=== PATIENT | female | born 1940 | race Caucasian/White ===

== ENCOUNTER 2017-08-07 06:04 | Inpatient (IN) | payer OTHER ==
--- NOTE | 2017-06-25 14:39 | PAT Medication Instructions ---
Service Date Jun 25, 2017. Current Home Medication List Carvedilol (Coreg Cr), 40 MG PO QAM Irbesartan-Hydrochlorothiazide (Avalide), 1 TAB PO QPM Multivitamins/Minerals (Mvi With Minerals), 1 TAB PO QAM Naproxen (Aleve), 220 MG PO QAM Medication Instructions For Your Scheduled Surgery -Check with your surgeon for intstructions: Naproxen (Aleve), 220 MG PO QAM - Hold the following medications 24 hours prior to surgery: Irbesartan-Hydrochlorothiazide (Avalide), 1 TAB PO QPM - Hold the following medications the morning of surgery: Multivitamins/Minerals (Mvi With Minerals), 1 TAB PO QAM - Take the following medications the morning of surgery with a sip of water: Carvedilol (Coreg Cr), 40 MG PO QAM If you have any questions please call us at [phone] or [phone] or [phone]
--- NOTE | 2017-06-25 15:36 | DIAGNOSTIC IMAGING REPORT ---
CHEST PREADMISSION(PA/LAT) CLINICAL HISTORY: Preoperative chest COMPARISON STUDY: 04/11/2013 FINDINGS: The cardiac and mediastinal contours are normal. There is no evidence of focal pulmonary consolidation. There is no evidence of failure. No pleural effusions are visualized.[ There is a mild spinal curvature convex to the right. IMPRESSION: No active disease in the chest. Electronically signed by: Burke Riddle M.D. 06/25/2017 3:35 PM Dictated Date/Time: 06/25/2017 3:34 PM
[2017-06-25 16:42] LABS: BASO % 0.4 %; BASO ABS # 0.03 K/uL (0-0.2); COMPLETE YES; EOS % 2.7 %; HEMATOCRIT 39.7 % (37-47); IG% 0.1 %; LYMPH % 23.8 %; LYMPH ABS # 1.91 K/uL (1.2-3.4); MEAN CELL VOLUME 83.9 fL (80-100); MEAN CORPUSCULAR HGB CONC 34.5 g/dl (32-36); MEAN PLATELET VOLUME 10.2 fL (7.4-10.4); PLATELET COUNT 259 K/uL (130-400); RED BLOOD COUNT 4.73 M/uL (4.2-5.4); WHITE BLOOD COUNT 8.03 K/uL (4.8-10.8)
[2017-06-25 16:43] LABS: URINE APPEARANCE CLEAR (CLEAR); URINE BILIRUBIN NEG (NEG); URINE COLOR DK YELLOW; URINE NITRITE NEG (NEG); URINE PH 6.5 (4.5-7.5); URINE SPECIFIC GRAVITY 1.021 (1.000-1.030); UROBILINOGEN NEG (NEG)
[2017-06-25 16:46] LABS: MANUAL MICROSCOPIC REQUIRED? NO; REVIEW REQ? NO
[2017-06-25 16:50] LABS: BUN/CREATININE RATIO 17.8 (10-20); CALCIUM 9.2 mg/dl (8.5-10.1); CREATININE 0.75 mg/dl (0.60-1.20); POTASSIUM 3.8 mmol/L (3.5-5.1)
[2017-06-25 16:56] LABS: PROTHROMBIN TIME (PATIENT) 10.6 SECONDS (9.0-12.0)
[2017-06-26 06:00] LABS: ESTIMATED AVERAGE GLUCOSE 123 mg/dl; HA1C FLAG Normal (Normal)
--- NOTE | 2017-07-09 10:16 | History and Physical ---
History & Physical Date Jul 09, 2017. Chief Complaint Right Knee Pain History of Present Illness Heraclio is a pleasant 77-year-old female who presents for preoperative evaluation prior to a Right knee replacement. Patient states that they have been having pain in this knee for many years now, which has gradually worsened, it has now gotten to the point it is affecting her daily activities including walking, standing, going up and down steps. Patient has tried and failed conservative measures including previous cortisone injection, viscosupplementation, bracing, physical therapy, and PO NSAIDs with no relief. At this point in time, patient has failed conservative measures and would like to proceed with a right knee replacement. has h/o left TKA and doing well. Past Medical/Surgical History Hypertension High Cholesterol history of Left TKA April 2013 Additional History Hepatic Disease: No Endocrine Disorder: No Kidney Disease: No Hypertension: Yes Heart Disease: No Bleeding Tendencies: No Infectious Diseases: No Allergies Coded Allergies: No Known Allergies (Unverified , 06/25/17) Home Medications Scheduled Carvedilol (Coreg Cr), 40 MG PO QAM Irbesartan-Hydrochlorothiazide (Avalide), 1 TAB PO QPM Multivitamins/Minerals (Mvi With Minerals), 1 TAB PO QAM Naproxen (Aleve), 220 MG PO QAM Physical Examination Skin: warm/dry, no rash Eyes: normal inspection, EOMI, sclerae normal ENT: normal ENT inspection, pharynx normal Head: normocephalic, atraumatic Neck: supple, no adenopathy, trachea midline Respiratory/Chest: lungs clear, normal breath sounds, no respiratory distress Cardiovascular: regular rate, rhythm, no edema, no murmur Abdomen / GI: normal bowel sounds, non tender Addiitonal Comments: Right Knee Exam: Physical Exam Exam Findings Details Strength LE * Strength Description - Knee: Right: strength is decreased. Knee ROM L * Active ROM - Flexion: 135 degrees, Extension: 0 degrees, Factors: normal, Description: active pain free range of motion. Passive ROM - Flexion: 135 degrees, Extension: 0 degrees, Factors: normal, Description: passive pain free range of motion. Knee ROM R * Active ROM - Flexion: 125 degrees, Extension: 5 degrees, Factors: pain, Description: active painful range of motion. Passive ROM - Flexion: 125 degrees, Extension: 5 degrees, Factors: pain, Description: passive painful range of motion. Strength LE Normal Strength Description - Hip: Right: strength is normal. Ankle/ Foot: Right: strength is normal. Knee * Inspection - Gait: limp. Alignment - Right: varus, Left: neutral. Ecchymosis - Right: negative, Left: negative. Effusion - Right: mild, Left: normal. Swelling - Right: mild, Left: none. Flexibility - Right: normal, Left: normal. Maximum tenderness - Right: medial joint line, lateral joint line, patella, Left: normal. Patella exam - Crepitation - Right: mild, Left: normal. Patella position - Right: neutral, Left: neutral. Tilt - Right: equal, Left: normal. [facility] - lateral - Right: Positive. [facility] - medial - Right: Positive. Knee Comments No calf tenderness Knee Normal Inspection - Atrophy - Right: Absent, Left: Absent. Skin - Right: Normal, Left: Normal. Patella exam - Apprehension - Right: Negative, Left: Negative. Q-angle - Right: Normal, Left: Normal. Brittani's - Right: Negative, Left: Negative. [facility] [employer] - lateral - Left: Negative. Elia's - medial - Left: Negative. Posterior drawer - Right: Negative, Left: Negative. Anterior drawer - Right: Negative, Left: Negative. Valgus stress - Right: Negative, Left : Negative. Varus stress - Right: Negative, Left: Negative. Extensor lag - Right : Normal. Neurovascular LE Normal Neurovascular examination including reflexes, sensation , and pulses is within normal limits. Right Knee X-Ray: Xrays reviewed of the right knee showing findings consistent with degenerative joint disease including joint space narrowing, subchondral sclerosis and peripheral osteophyte formation. no acute bony pathology, overall varus alignment. Impression: degenerative joint disease of the right knee with no acute bony pathology noted. Diagnosis Right Knee Osteoarthritis Further care discussed with patient and at this point in time has failed conservative measures and would like to proceed with a right total knee replacement. Plan on discharge will be home with outpatient physical therapy. DVT prophalaxis with TEDs, SCDs and will also place on aspirin 81 mg p.o. b.i.d. for a month postop. Patient will have follow up appointment in our office two weeks post op for staple/suture removal and re-evaluation. Patient otherwise has no other questions or concerns. Hypertension High Cholesterol
[~2017-08-07] VITALS: Ht 162.6 cm; Wt 79.3 kg
[2017-08-07] VITALS (7 sets, daily range): BP systolic 124–158; BP diastolic 68–82; PULSE 51–65; TEMP 36.3–36.5; O2SAT 97–100; Ht 162.6 cm; Wt 79.3 kg
[~2017-08-07 06:04] MED LIST: ACETAMINOPHEN 500 MG TAB PO SCH; CEFAZOLIN 1000MG/55 ML D5W 55 ML IV SCH; CRGSR/40 PO; CeleBREX 200 MG CAP PO SCH; DEXAMETHASONE 4 MG TAB PO SCH; FAMOTIDINE 20 MG TAB PO SCH; GABAPENTIN 300 MG CAP PO SCH; IRBE-41 PO; LACTATED RINGER'S 1000ML 1,000 ML IV SCH; LACTATED RINGER'S 1000ML 500 ML IV ONE; METOCLOPRAMIDE HCL 10 MG TAB PO SCH; MULT-513 PO; NAPR1TAB9 PO; ROPIVACAINE 5MG/ML 30 ML 150 MG, BUPIVACAINE/EPINEPHR 0.5% MPF 30 ML, KETOROLAC TROMETH... INFIL SCH
[2017-08-07] MEDS ORDERED: BUPIVACAINE 0.5 % 5 MG/1 ML PF 10ML VIAL ONE (06:22)
[2017-08-07] MEDS ORDERED: BUPIVACAINE 0.25% 30 ML VIAL ONE (06:22)
[2017-08-07] MEDS: TRANEXAMIC ACID INJ 1,000 MG in SODIUM CHLORIDE 0.9% 100ML 100 ML IV SCH ×2 (06:30→07:53)
--- NOTE | 2017-08-07 06:57 | History & Physical Bridge Note ---
H&P Re-Evaluation Bridge Note: I have examined the patient, reviewed the History & Physical and in the interval since the performance of the History & Physical I have noted the following changes of clinical significance: No changes noted
[2017-08-07] MEDS ORDERED: MIDAZOLAM HCL 1 MG/ML 2ML VIAL ONE (07:04)
[2017-08-07] MEDS ORDERED: FENTANYL CITRATE INJ 50 MCG/1 ML 2 ML VIAL ONE (07:04)
[2017-08-07] MEDS ORDERED: POVIDONE-IODINE OP SOLN 30 ML BTL ONE (07:08)
[2017-08-07] MEDS ORDERED: BACITRACIN 50000 UNIT VIAL ONE (07:08)
[2017-08-07] MEDS ORDERED: ORTHO JOINT ANESTHETIC ONE (07:08)
[2017-08-07] MEDS ORDERED: LIDOCAINE HCL 2% 2 ML VIAL (20MG/ML) ONE (07:15)
[2017-08-07] MEDS ORDERED: PHENYLEPHRINE 100MCG/ML 5ML SYR ONE (07:15)
[2017-08-07] MEDS ORDERED: PROPOFOL IV EMULSION 10 MG/ML 20 ML VIAL IV ONE ×2 (07:15→08:39)
[2017-08-07] MEDS ORDERED: EpHEDrine SULFATE 50MG/5ML SYR ONE (07:15)
--- NOTE | 2017-08-07 09:15 | [facility] Operative Report ---
Operative Report Operative Date Aug 07, 2017. Pre-Operative Diagnosis Right knee osteoarthritis Post-Operative Diagnosis same Procedure(s) Performed Right Total Knee Arthroplasty utilizing [employer]ley [employer] Nephew nonlocked journey 2 total knee arthroplasty size 4 femur 3 tibia 12 Tamela [address] Dyson Locker Room Manager Surgeon(s) Theo Whitney PA-C Estimated Blood Loss 5 ML Findings Patient presents with a severe end-stage tricompartmental degenerative joint disease varus alignment subchondral cystic formation medial and lateral osteophytes as well as patellofemoral osteophytes Nourse wants to conservative therapy Specimens a. right knee bone and tissue Complication(s) None Disposition Recovery Room / PACU Indications Patient presents after failing attempts at conservative management including physical therapy anti-inflammatories relative rest activity modification interarticular injections patient underwent thorough discussion regarding risk and complications elects to proceed forward with total joint arthroplasty Description of Procedure After proper prepping and draping of the Right lower extremity anterior midline incision was made over the region of the extensor extensor mechanism after meticulous hemostasis was obtained and maintained in subcutaneous tissues a medial parapatellar incision was made The patella was subluxed lateralward the medial lateral gutter were cleaned from any hypertrophic synovitis and scar tissue of the distal femoral block was placed and the distal femoral osteotomy cut was made subsequently the chamfers anterior and posterior osteotomy cuts were made utilizing the 4-in-1 block the tibia was subsequently subluxed anteriorward medial and ateral meniscal remnants were excised in their entirety remnants of the anterior and posterior cruciate ligaments were excised in their entirety excellent exposure of the proximal tibia was obtained the tibial osteotomy guide was placed on the proximal tibial osteotomy cut was made once again the knee was irrigated with copious amounts of sterile saline solution the patella was subsequently everted lateralward thickened scar tissue around the patella was removed the patella was subsequently cut utilizing a freehand technique and was drilled prepared for final preparation and placement of patella socially flexion-extension gaps were checked and the equal and symmetric trials were placed to the appropriate femoral and tibial trials with poly-spacer being placed for equal flexion and extension gaps and full range of motion including extension to 0 and flexion to 140 the trial components after having been taken to recovery range of motion was subsequently removed meticulous hemostasis was obtained and maintained subsequently a knee block injection of joint cocktail including ropivacaine 0.5% 150 mg. Bupivacaine 0.5 % epinephrine 1-200,030 mL's toradol 30 mg dexamethasone 4 mg ketamine 10 mg clonidine 100 micrograms normal saline solution 30 mg was infiltrated into the soft tissues of the posterior knee medial lateral gutters and periosteal synovium special attention was paid to protect neurovascular structures at all times subsequently trial components having been removed the knee was irrigated with sterile saline solution. debris was removed the proximal tibia was subsequently prepared and was made ready for the placement of the tibial component tibial component was also cemented and tamped into position the femoral component was subsequently placed and cemented in the position the patellar component was subsequently cemented in position because hemostasis once again obtained and maintained wound having been thoroughly irrigated with debridement and debridement lavage was performed as well as a medial parapatellar incision closed with #1 Vicryl in interrupted fashion subcutaneous was closed with #2 Vicryl skin was closed with skin clips. PA-C was necessary for prepping and drapping as well as wound closure of deep fascia Sub cutaneous tissue and skin and was necessary for the case. A sterile compressive dressing was placed patient was taken to recovery in stable condition of report dictated by Kiel I attest to the content of the Intraoperative Record and any orders documented therein. Any exceptions are noted below. I attest to the content of the Intraoperative Record and any orders documented therein. Any exceptions are noted below.
[2017-08-07] MEDS ORDERED: HYDROmorphone INJ 2 MG/ML SYR/VIAL IV PRN (09:30)
[2017-08-07] MEDS ORDERED: KETOROLAC TROMETHAMINE 15 MG/ML VIAL IV. PRN (09:30)
[2017-08-07] MEDS ORDERED: ONDANSETRON INJ 2 MG/ML 2 ML VIAL IV PRN ×2 (09:30→10:00)
[2017-08-07] MEDS ORDERED: ATROPINE SULFATE 0.1 MG/ML 5ML SYR IV PRN (09:30)
[2017-08-07] MEDS ORDERED: EpHEDrine SULFATE INJ 50 MG/ML AMP IV PRN (09:30)
[2017-08-07] MEDS ORDERED: PHENYLEPHRINE 100MCG/ML 5ML SYR IV PRN (09:30)
[2017-08-07] MEDS ORDERED: ALUMINUM/MAGNESIUM/SIMETH (MAALOX MAX) 30 ML UDC PO PRN (10:00)
[2017-08-07] MEDS ORDERED: MoRPHine SULFATE 4 MG/ML 1 ML CARP\\VIAL IV PRN (10:00)
[2017-08-07] MEDS ORDERED: MoRPHine SULFATE 2 MG/ML CARP IV PRN (10:00)
[2017-08-07] MEDS ORDERED: MAGNESIUM HYDROXIDE SUSP 30 ML UDC PO PRN (10:00)
[2017-08-07] MEDS ORDERED: BISACODYL 10 MG SUPP PR PRN (10:00)
[2017-08-07] MEDS ORDERED: OXYCODONE HCL IR 5 MG TAB (IMMEDIATE RELEASE) PO PRN (10:00)
--- NOTE | 2017-08-07 11:14 | Anesthesiology Progress Note ---
Anesthesia Post Op Note Date & Time Aug 07, 2017 at 11:14 Vital Signs Pain Intensity: 2 Vital Signs Past 12 Hours Date Time Temp Pulse Resp B/P (MAP) Pulse Ox O2 Delivery O2 Flow Rate FiO2 08/07/17 10:45 36.3 52 12 153/78 99 Nasal Cannula 2 08/07/17 10:30 36.2 49 12 140/75 99 Nasal Cannula 2 08/07/17 10:20 49 12 127/72 99 Nasal Cannula 2 08/07/17 10:10 36.0 49 12 134/69 98 Nasal Cannula 2 08/07/17 10:00 48 14 125/66 99 Oxymask 4 08/07/17 09:52 36.2 57 20 95/56 98 Oxymask 4 08/07/17 08:20 53 18 138/81 (100) 99 Room Air 08/07/17 08:10 70 20 214/109 (144) 99 Room Air 08/07/17 07:21 97 Room Air Notes Mental Status: alert / awake / arousable, participated in evaluation Pt Amnestic to Procedure: Yes Nausea / Vomiting: adequately controlled Pain: adequately controlled Airway Patency, RR, SpO2: stable & adequate BP & HR: stable & adequate Hydration State: stable & adequate Anesthetic Complications: no major complications apparent
--- NOTE | 2017-08-07 11:18 | DIAGNOSTIC IMAGING REPORT ---
R KNEE 1 OR 2 VIEWS ROUTINE CLINICAL HISTORY: 77 years-old Female presenting with AP/LATERAL IN PACU RIGHT KNEE, postop. TECHNIQUE: Frontal and lateral views of the right knee were obtained. COMPARISON: None. FINDINGS: Postsurgical changes of total right knee arthroplasty with patellar resurfacing. Intra-articular and soft tissue emphysema noted with a surgical drain. No malalignment. No fracture. No hardware complication. IMPRESSION: Expected postsurgical appearance of the total right knee arthroplasty with patellar resurfacing. Electronically signed by: Tu Monroy M.D. 08/07/2017 11:17 AM Dictated Date/Time: 08/07/2017 11:16 AM
[2017-08-07] MEDS: D5W AND 1/2NSS + 20MEQ KCL 1,000 ML IV SCH ×2 (12:08→21:36)
[2017-08-07] MEDS: FERROUS GLUCONATE 324 MG TAB PO SCH ×2 (12:52→18:50)
[2017-08-07] MEDS: ACETAMINOPHEN 500 MG TAB PO SCH ×2 (13:28→21:36)
[2017-08-07] MEDS: CEFAZOLIN IV 2,000 MG in DEXTROSE 5% 50ML 50 ML IV SCH ×2 (15:34→23:36)
[2017-08-07] MEDS ORDERED: NON-FORMULARY MEDICATION (Irbesartan-Hydrochlorothiazide (Avalide) 1 TAB) PO SCH (21:00)
[2017-08-07] MEDS: SENNA 8.6 MG TAB PO SCH (21:00)
[2017-08-07] MEDS: HYDROCHLOROTHIAZIDE 25 MG TAB PO SCH (21:07)
[2017-08-07] MEDS: IRBESARTAN 150 MG TAB PO SCH (21:07)
[2017-08-07] MEDS: CeleBREX 200 MG CAP PO SCH (21:08)
[2017-08-07] MEDS: ASPIRIN 81 MG ECTAB PO SCH (21:08)
[2017-08-07] MEDS: DOCUSATE SODIUM 100 MG CAP PO SCH (21:08)
[2017-08-08 04:16] VITALS: BP 124/67; PULSE 80; TEMP 36.8; O2SAT 97
[2017-08-08] MEDS: ACETAMINOPHEN 500 MG TAB PO SCH ×3 (05:39→21:20)
[2017-08-08 06:58] LABS: HEMATOCRIT 33.2 % (37-47); MEAN CELL VOLUME 84.5 fL (80-100); MEAN CORPUSCULAR HGB CONC 33.1 g/dl (32-36); MEAN PLATELET VOLUME 9.5 fL (7.4-10.4); PLATELET COUNT 210 K/uL (130-400); RED BLOOD COUNT 3.93 M/uL (4.2-5.4); WHITE BLOOD COUNT 17.11 K/uL (4.8-10.8)
[2017-08-08 07:21] LABS: BUN/CREATININE RATIO 28.1 (10-20); CALCIUM 8.2 mg/dl (8.5-10.1); CREATININE 0.64 mg/dl (0.60-1.20); POTASSIUM 4.4 mmol/L (3.5-5.1)
[2017-08-08 08:30] VITALS: BP 136/71; PULSE 67; TEMP 36.5; O2SAT 97
--- NOTE | 2017-08-08 08:45 | Orthopedic Progress Note ---
Orthopedic Progress Note Date of Service Aug 08, 2017. Subjective Post OP Day: 1 Reports: feeling well, Denies: complaints Objective calves soft nontender, N/V intact, dressing C/D/I, A&O x3, toes mobile, hemovac drainage (300ml latest shift) Date Time Temp Pulse Resp B/P (MAP) Pulse Ox O2 Delivery O2 Flow Rate FiO2 08/08/17 07:25 Room Air 08/08/17 04:16 36.8 80 17 124/67 (86) 97 Room Air 08/07/17 23:42 Room Air 08/07/17 22:47 36.5 65 16 143/68 (93) 97 Room Air 08/07/17 20:55 63 134/68 (90) 08/07/17 15:20 Room Air 08/07/17 13:56 36.4 57 17 153/82 (105) 98 Nasal Cannula 2.0 08/07/17 13:10 36.4 56 18 152/82 (105) 99 Nasal Cannula 2.0 08/07/17 11:30 36.3 51 16 158/82 (107) 100 Nasal Cannula 2.0 08/07/17 11:00 Nasal Cannula 2.0 08/07/17 11:00 Nasal Cannula 2.0 08/07/17 11:00 36.3 52 16 124/78 (93) 99 Nasal Cannula 2.0 08/07/17 10:45 36.3 52 12 153/78 99 Nasal Cannula 2 08/07/17 10:30 36.2 49 12 140/75 99 Nasal Cannula 2 08/07/17 10:20 49 12 127/72 99 Nasal Cannula 2 08/07/17 10:10 36.0 49 12 134/69 98 Nasal Cannula 2 08/07/17 10:00 48 14 125/66 99 Oxymask 4 08/07/17 09:52 36.2 57 20 95/56 98 Oxymask 4 Laboratory Results 24 Hours: Test 08/08/17 06:40 Hematocrit 33.2 % Hemoglobin 11.0 g/dL Assessment & Plan Assessment: POD 1 s/p Right TKA Plan: PT/OT today Planning for OPPT upon DC Inhouse Planning Pain Management: Celebrex, Ultram, Morphine, PO Tylenol, Oxy IR DVT Prophylaxis: TEDs, SCDs, ASA Discharge Planning Discharge Planning: home with oppt
[2017-08-08] MEDS: PANTOprazole SOD 40 MG TAB PO SCH (08:54)
[2017-08-08] MEDS: CeleBREX 200 MG CAP PO SCH ×2 (08:54→21:18)
[2017-08-08] MEDS: DOCUSATE SODIUM 100 MG CAP PO SCH ×2 (08:54→21:17)
[2017-08-08] MEDS: ASPIRIN 81 MG ECTAB PO SCH ×2 (08:55→21:18)
[2017-08-08] MEDS: MULTIVITAMIN TAB PO SCH (08:55)
[2017-08-08] MEDS: FERROUS GLUCONATE 324 MG TAB PO SCH ×3 (08:55→18:07)
[2017-08-08] MEDS: D5W AND 1/2NSS + 20MEQ KCL 1,000 ML IV SCH (08:56)
[2017-08-08 09:52] VITALS: BP 152/77; PULSE 62; O2SAT 98
--- NOTE | 2017-08-08 10:50 | Anesthesiology Progress Note ---
Anesthesia Post Op Note Date & Time Aug 08, 2017 at 10:49 Vital Signs Vital Signs Past 12 Hours Date Time Temp Pulse Resp B/P (MAP) Pulse Ox O2 Delivery O2 Flow Rate FiO2 08/08/17 08:30 36.5 67 18 136/71 (92) 97 Room Air 08/08/17 07:25 Room Air 08/08/17 04:16 36.8 80 17 124/67 (86) 97 Room Air 08/07/17 23:42 Room Air Notes Mental Status: alert / awake / arousable, participated in evaluation Pt Amnestic to Procedure: Yes Nausea / Vomiting: adequately controlled Pain: adequately controlled Airway Patency, RR, SpO2: stable & adequate BP & HR: stable & adequate Hydration State: stable & adequate Neuraxial Anesthesia: was administered, sensory block resolved Anesthetic Complications: no major complications apparent
[2017-08-08] MEDS: TRAMADOL HCL 50 MG TAB PO PRN ×2 (14:50→21:22)
--- NOTE | 2017-08-08 15:12 | Discharge Instructions ---
Discharge Instructions Date of Service Aug 08, 2017. Admission Reason for Admission: Right Knee Osteoarthritis Discharge Discharge Diagnosis / Problem: Right Knee Djd Discharge Goals Goal(s): Decrease discomfort, Improve function Activity Recommendations Activity Limitations: per Instructions/Follow-up section Weightbearing Status: Right weightbearing (as tolerated) . Instructions / Follow-Up Instructions / Follow-Up ACTIVITY RECOMMENDATIONS: SELF CARE INSTRUCTIONS AFTER TOTAL KNEE REPLACEMENT A. You may need to continue a physical therapy program after discharge from the hospital. There are several options available to you. Your doctor will assist you in selecting the best one for you. 1. An out-patient facility 2 to 3 times a week for therapy or home therapy. 2. Continue working on all exercises taught to you in the hospital. Your goals should be to increase bending of your knee to 90 degrees and beyond and to fully straighten your knee. B. You may progress at your own pace from walking with a walker or crutches to a cane; then to no assistive devices. C. Make walking a part of your daily routine. Be up as much as comfortable with rest periods throughout the day. Rest with leg elevation is very important. Use the ice wrap frequently for the first 3-4 weeks. D. There are no restrictions on activities. You may ride in a car, shop, participate in golf course keeper and all social activities. E. Wear the long elastic stockings (LIDA hose) 20 hours a day for 2 weeks after surgery. They can be removed several times a day for laundering and for a bath. F. You may shower, no tub baths until cleared by your doctor. SPECIAL CARE INSTRUCTIONS: VERY IMPORTANT TO READ AND REVIEW A. There are a few signs you need to watch for after you are home. Call [facility] if you notice any of the followin. Increased severe knee pain. Some pain is expected especially when you exercise. 2. Increased swelling in your leg or knee; pain or swelling of the calf muscle in either lower leg. 3. Any fluid drainage from the incision. 4. Shortness of breath or chest pain. B. Please call [facility] at if you have any concerns or questions about your operation or recovery. The doctor or his nurse will return your call promptly. C. You must take antibiotics before dental work, bladder, bowel or other surgery. Your doctor will provide you with a permanent care to carry describing this precaution. IMPORTANT: * REMEMBER TO TAKE ASPIRIN, 81 MG, TWICE DAILY FOR 4 WEEKS UNLESS OTHERWISE DIRECTED. THIS IS YOUR BLOOD THINNER. * HIGH RISK PATIENTS MAY BE PRESCRIBED A STRONGER BLOOD THINNER. THIS WILL BE PROVIDED AT DISCHARGE. * CALL IF INCREASED PAIN, REDNESS, DRAINAGE OR FEVER GREATER THAT 101. * WEAR LIDA HOSE 20 HOURS PER DAY FOR 2 WEEKS. * DERMABOND Prineo- This is a mesh tape dressing that is covered with glue. It should remain in place until the incision is properly healed, usually 10-14 days. This dressing is designed to naturally slough off. You may trim the excess mesh tape as it peels off. Incision may be briefly wet in a shower. Dry immediately by blotting with a clean, dry towel. Do not bath or swim until instructed by your doctor. Do not scratch, rub, or pick at the dressing. Do not apply any topical ointments or lotions until dressing is completely removed and/or instructed by your doctor. There may be a small piece of suture material at one end of your incision. Do not pull or trim this. If it is bothersome or catching on clothing, you may cover it with a band-aid. Call the office with any questions. . FOLLOW UP VISIT: If appointment is not already scheduled: Please call [facility] to make a follow-up appointment for 2 weeks after your surgery at . Current Hospital Diet Patient's current hospital diet: Regular Diet Discharge Diet Recommended Diet: Regular Diet Procedures Procedures Performed: Right Total Knee Arthroplasty utilizing [employer] nonlocked journey 2 total knee arthroplasty size 4 femur 3 tibia 12 Tamela 32 oval patella Pending Studies Studies pending at discharge: no Laboratory Results Hemoglobin A1c Test 06/25/17 15:04 Range/Units Estimated Average Glucose 123 mg/dl Hemoglobin A1c 5.9 H 4.5-5.6 % Medical Emergencies . Who to Call and When: Medical Emergencies: If at any time you feel your situation is an emergency, please call 911 immediately. . Non-Emergent Contact Non-Emergency issues call your: Surgeon Call Non-Emergent contact if: temperature is above 101.5, your pain is not controlled, your pain is worsening, wound has increased drainage, wound has increased redness . "Provider Documentation" section prepared by Theo Whitney. . VTE Core Measure Inpt VTE Proph given/why not?: Other Anticoagulation, T.E.D. Stockings, SCD's [place] Drug Monitoring Program Search Results: patient reviewed within database, no issues identified
[2017-08-08 16:15] VITALS: BP 168/81; PULSE 64; TEMP 36.7; O2SAT 95
[2017-08-08 19:58] VITALS: BP 151/71
[2017-08-08] MEDS: SENNA 8.6 MG TAB PO SCH (21:16)
[2017-08-08] MEDS: HYDROCHLOROTHIAZIDE 25 MG TAB PO SCH (21:17)
[2017-08-08] MEDS: IRBESARTAN 150 MG TAB PO SCH (21:19)
[2017-08-08 23:50] VITALS: BP 138/77; PULSE 61; TEMP 36.4; O2SAT 94
[2017-08-09] MEDS: TRAMADOL HCL 50 MG TAB PO PRN ×2 (02:58→13:05)
[2017-08-09] MEDS: ACETAMINOPHEN 500 MG TAB PO SCH ×2 (05:26→13:03)
[2017-08-09 07:25] VITALS: BP 135/75; PULSE 55; TEMP 36.3; O2SAT 96
--- NOTE | 2017-08-09 07:36 | Orthopedic Progress Note ---
Orthopedic Progress Note Date of Service Aug 09, 2017. Subjective Post OP Day: 2 Reports: feeling well, pain controlled w PO medications, Denies: complaints, chest pain, SOB, nausea / vomiting, light headedness, calf pain Objective calves soft nontender, N/V intact, capillary refill less than 2 sec., A&O x3, toes mobile Date Time Temp Pulse Resp B/P (MAP) Pulse Ox O2 Delivery O2 Flow Rate FiO2 08/09/17 00:17 Room Air 08/08/17 23:50 36.4 61 16 138/77 (97) 94 Room Air 08/08/17 19:58 151/71 (97) 08/08/17 16:15 36.7 64 18 168/81 (110) 95 08/08/17 15:30 Room Air 08/08/17 09:52 62 98 08/08/17 08:30 36.5 67 18 136/71 (92) 97 Room Air Assessment & Plan Assessment: POD 2 s/p Right TKA Plan: PT/OT today Planning for OPPT upon DC Discharge Planning Discharge Planning: home with oppt DVT Prophylaxis: TEDs, SCDs, ASA Therapy: Physical Therapy
[2017-08-09] MEDS ORDERED: ULT50X PO (07:40)
[2017-08-09] MEDS ORDERED: CLB200 PO (07:40)
[2017-08-09] MEDS ORDERED: RXC5 PO (07:40)
[2017-08-09] MEDS ORDERED: ONDA8TAB6 PO (07:40)
[2017-08-09] MEDS ORDERED: ACET-24 PO (07:40)
[2017-08-09] MEDS ORDERED: ASPEC81 PO (07:40)
[2017-08-09] MEDS ORDERED: CLC100 PO (07:40)
[2017-08-09] MEDS ORDERED: CARVEDILOL PHOSPHATE 40 MG PO SCH (09:00)
[2017-08-09] MEDS: FERROUS GLUCONATE 324 MG TAB PO SCH ×2 (09:17→13:02)
[2017-08-09] MEDS: ASPIRIN 81 MG ECTAB PO SCH (09:17)
[2017-08-09] MEDS: MULTIVITAMIN TAB PO SCH (09:18)
[2017-08-09] MEDS: DOCUSATE SODIUM 100 MG CAP PO SCH (09:18)
[2017-08-09] MEDS: PANTOprazole SOD 40 MG TAB PO SCH (09:18)
[2017-08-09] MEDS: CeleBREX 200 MG CAP PO SCH (09:18)
[2017-08-09 11:25] VITALS: BP 135/75; PULSE 55; TEMP 36.3; O2SAT 96
== END 2017-08-09 14:41 | disposition home or self-care (01) | DRG 470 ==
LOC: C.ACU 06:04 → C.3E 07:55 → ENRESERV 10:36
PROVIDERS: ADMIT Orthopaedic Surgery; ATTEND Orthopaedic Surgery
PROC: 0SRC0J9 Replacement of Right Knee Joint with Synthetic Substitute, Cemented, Open Approach (ICD-10-PCS; principal; 2017-08-07 08:15)
DX: M17.11 Unilateral primary osteoarthritis, right knee (principal); I10 Essential (primary) hypertension; E78.00 Pure hypercholesterolemia, unspecified; Z96.652 Presence of left artificial knee joint